=== PATIENT | male | born 2000 | race Hispanic/Latino ===

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

== ENCOUNTER 2024-04-12 12:10 | Emergency (ER) | payer SELFPAY ==
[~2024-04-12] VITALS: Ht 172.7 cm; Wt 95.3 kg
--- NOTE | 2024-04-12 12:20 | ERN ---
ED Note History of Present Illness Stated Complaint: MULT COMP Time Seen by MD: 12:11 Time Seen by Midlevel: 12:19 Dictation: PATIENT IS A 23-YEAR-OLD MALE COMING IN WITH FLU-LIKE SYMPTOMS FOR THREE DAYS TO INCLUDE FRONTAL HEADACHE BODY ACHES STATES HIS KIDNEYS HURT. STATES HE HAS DECREASED APPETITE WITH SORE THROAT. STATES THAT HE THINKS THE ONSET WAS WHEN HE WAS WORKING ON A SHED TO CLEAR IT OUT THREE DAYS AGO AND THERE WAS RAT FECES AND POISON. HAS NOT BEEN TO SEE HIS PRIMARY CARE DOCTOR, STATES HE TOOK ADVIL PRIOR TO ARRIVAL. Allergies: Coded Allergies: No Known Drug Allergies (Unverified Allergy, Unknown, 03/17/20) Past Medical History RN Note Reviewed/Agreed w/PFSH: Yes Review of System Dictation CONSTITUTIONAL: NEGATIVE EXCEPT FOR HPI FEVER CHILLS HEAD/FACE: NEGATIVE EXCEPT FOR HPI EENT: NEGATIVE EXCEPT FOR HPI SORE THROAT WITH PAINFUL SWALLOWING/FRONTAL HEADACHE RESPIRATORY: NEGATIVE EXCEPT FOR HPI GASTROINTESTINAL/ABDOMINAL: NEGATIVE EXCEPT FOR HPI GENITOURINARY: NEGATIVE EXCEPT FOR HPI MUSCULOSKELETAL: NEGATIVE EXCEPT FOR HPI MALAISE INTEGUMENTARY: NEGATIVE EXCEPT FOR HPI NEUROLOGICAL/PSYCH: NEGATIVE EXCEPT FOR HPI HEMATOLOGIC/LYMPHATIC: NEGATIVE EXCEPT FOR HPI ALL SYSTEMS NEGATIVE, EXCEPT NOTED ABOVE. 13 POINT REVIEW OF SYSTEMS ASSESSED AND ALL NEGATIVE EXCEPT FOR ABOVE. Initial Vital Sign VS Vital Signs Date Time Temp Pulse Resp B/P (MAP) Pulse Ox O2 Delivery O2 Flow Rate FiO2 04/12/24 12:24 100.0 120 16 129/79 98 Room Air* 0 21 Physical Exam Dictation VITAL SIGNS REVIEWED GENERAL APPEARANCE: ALERT, ORIENTED X 3, MILD ACUTE DISTRESS, WELL DEVELOPED, NOURISHED. HEAD AND FACE: NON-TRAUMATIC. NO FRONTAL SINUS TENDERNESS EYES: PERRL, PINK CONJUNCTIVAS, EYELID NO TRAUMA, ANTERIOR CHAMBER WITH ARCUS SENILIS. EARS: PINNAS INTACT AND NO SIGNS OF TRAUMA OR ERYTHEMA EAR CANALS CLEAR AND NO DISCHARGE TM NO ERYTHEMA NOSE: NO DISCHARGE, NO BLEEDING. OROPHARYNX: MOUTH NORMAL, TONGUE PINK, PHARYNX CLEAR MODERATE PHARYNGEAL ERYTHEMA, TONSILS NO EXUDATES, NO ABSCESSES NOTED, MUCOUS MEMBRANE MOIST UVULA MIDLINE, VOICE IS CLEAR NECK: SUPPLE, NON-TENDER, NO THYROMEGALY, NO MASSES, NO JVD, NO BRUITS BREAST:DEFERRED CHEST:NO TENDERNESS, NO CREPITUS, NO PARADOXICAL MOVEMENT, NO RETRACTIONS LUNGS:CLEAR, WELL-VENTILATED, SYMMETRIC, NO RALES, NO WHEEZING, NO RHONCHI, NO STRIDOR, GOOD BREATH SOUNDS BILATERALLY HEART: REGULAR RATE, REGULAR RHYTHM, NO MURMUR, NO GALLOPS VASCULAR: NO PERIPHERAL EDEMA, ABDOMEN: SOFT, POSITIVE BOWEL SOUNDS, NONDISTENDED, NO GUARDING, NONTENDER, NO REBOUND, NO MASSES NO HEPATOMEGALY, NO SPLENOMEGALY, NO SANCHEZ'S SIGN, NO HERNIAS. RECTAL: DEFERRED GENITAL: DEFERRED NEUROLOGICAL: NORMAL SPEECH, MOTOR FUNCTION INTACT, SENSORY FUNCTION INTACT MUSCULOSKELETAL: NECK NONTENDER, FULL RANGE OF MOTION, BACK NONTENDER, FULL RANGE OF MOTION, EXTREMITIES: NONTENDER, FULL RANGE OF MOTION SKIN: COLOR PINK, DRY, NO TURGOR, NO RASH, NO LACERATIONS, NO ABRASIONS, NO CONTUSIONS. LYMPHATIC: DEFERRED Results (Laboratory/Radiology) Laboratory/Radiology Laboratory Tests Test 04/12/24 14:55 Influenza Type A Antigen Positive For Type A Influenza Type B Antigen Negative For Type B SARS-CoV-2 Antigen (Rapid) PRESUMPTIVE NEGATIVE Group A Streptococcus Rapid negative (NEGATIVE) Labs Reviewed?: Yes ED Course ED Course Orders Procedure Category Date Status Time Covid19 (Sars Antigen LAB 04/12/24 Complete Rapid) 12:18 Influenza Type A & B, LAB 04/12/24 Complete Rapid 12:18 Rapid (Group A Strep) LAB 04/12/24 Complete 12:18 Dexamethasone 4mg/Ml PHA 04/12/24 Complete 1ml Vial (Dexametha 12:30 Ketorolac 60mg/2ml PHA 04/12/24 Complete (Toradol 60mg/2ml) 12:30 Current Medications Medications (Trade) Dose Ordered Sig/Edward Route PRN Reason Start Time Stop Time Status Last Admin Dose Admin Dexamethasone Sodium Phosphate (dexaMETHasone 4MG/ML 1ML VIAL) 8 mg ONCE ONCE IM 04/12/24 12:30 04/12/24 12:31 DC 04/12/24 14:50 Ketorolac Tromethamine (toRADol 60MG/ 2ML) 60 mg ONCE ONCE IM 04/12/24 12:30 04/12/24 12:31 DC 04/12/24 14:50 Vital Signs Date Time Temp Pulse Resp B/P (MAP) Pulse Ox O2 Delivery O2 Flow Rate FiO2 04/12/24 15:21 99.0 100 16 132/76 100 Room Air* 0 21 04/12/24 12:24 100.0 120 16 129/79 100 Room Air 0 04/12/24 12:24 100.0 120 16 129/79 98 Room Air* 0 21 \[id number] PATIENT WILL BE DISCHARGED HOME WITH INFLUENZA A. SHE WILL BE PRESCRIBED TAMIFLU AND IBUPROFEN TOLD TO SEE HIS PRIMARY CARE DOCTOR. Medical Decision Making MDM MEDICAL DISCHARGE MAKING BASED ON SWABS FOR FLU COVID AND STREP. PATIENT POSITIVE FOR INFLUENZA A DISCHARGED HOME WITH [id number] MG B.I.D. IBUPROFEN FOR FEVER PAIN REHYDRATION INSTRUCTIONS AND TOLD TO SEE HIS PRIMARY CARE DOCTOR DX & DISP Disposition: Discharge Departure Impression: Primary Impression: Influenza A Additional Impression: Fever Condition: Stable Scripts Ibuprofen (Ibuprofen 800 mg Tab) 800 Mg Tab 800 MG PO Q8H PRN for fever or pain, #30 TAB 0 Refills Prov: CHAO KRAFT NP 04/12/24 Oseltamivir Phosphate (Tamiflu) 75 Mg Cap 75 MG PO BID for 5 Days, #10 CAP Prov: CHAO KRAFT LEVEL VIAL INSIDE GRINDER 04/12/24 Additional Instructions: FOLLOW-UP WITH PRIMARY CARE PROVIDER IN 1 TO 2 DAYS. TAKE MEDICATIONS DIRECTED HERE IN THE EMERGENCY ROOM. OKAY TO CONTINUE HOME MEDICATIONS UNLESS OTHERWISE DISCUSSED DURING YOUR VISIT IN THE EMERGENCY ROOM TODAY. RETURN TO YOUR NEAREST EMERGENCY ROOM IF SYMPTOMS WORSEN OR IF THERE IS NO IMPROVEMENT. CALL 911 IF YOU NEED IMMEDIATE ASSISTANCE. TAKE TYLENOL OR MOTRIN [id number] NEEDED AND IF NO CONTRAINDICATIONS ARE PRESENT. INCREASE ORAL HYDRATION. A WOUND CULTURE OR URINE CULTURE WAS ORDERED HERE IN THE EMERGENCY ROOM DEPARTMENT PLEASE FOLLOW-UP WITH PRIMARY CARE PROVIDER AND ADVISE THEM TO GET REPEAT PORTS FROM OUR FACILITY. IF YOU HAD ANY SIOBHAN WRAP/SPLINTS THAT WERE APPLIED HERE, PLEASE DO NOT REMOVE THEM UNTIL YOU SEE YOUR PRIMARY CARE OR SPECIALTY. TAKE IBUPROFEN DIRECTED FOR FEVER PAIN. TAKE TAMIFLU DIRECTED UNTIL GONE, NO WORK OR SCHOOL UNTIL CLEARED BY YOUR PRIMARY CARE DOCTOR. INCREASE FLUIDS. Referrals: LEIGHTON ALVARADO DO (PCP) Time of Disposition: 16:07 I have reviewed the case, and I agree with, Diagnosis and Plan CHAO KRAFT NP Apr 12, 2024 12:20
[2024-04-12] MEDS: ketOROlac 60 MG VIAL (30MG/ML) IM ONE (14:50)
[2024-04-12] MEDS: dexaMETHasone SOD PHOSPHATE 4 MG/ML 1ML VIAL IM ONE (14:50)
[2024-04-12 15:48] LABS: RAPID GROUP A STREP negative (NEGATIVE)
[2024-04-12 16:01] LABS: COVID19 (SARS ANTIGEN RAPID) PRESUMPTIVE NEGATIVE (NEGATIVE); INFLUENZA TYPE B Negative For Type B (NEGATIVE)
[2024-04-12 16:03] LABS: INFLUENZA TYPE A Positive For Type A (NEGATIVE)
[2024-04-12] MEDS ORDERED: OSEL75 PO (16:08)
[2024-04-12] MEDS ORDERED: IBUP-2077 PO (16:08)
[2024-04-12 16:35] VITALS: BP 129/76; PULSE 100; RESP 16; TEMP 98.9; O2SAT 100
== END 2024-04-12 16:41 | disposition home or self-care (01) ==
LOC: EDH 12:10
DX: J10.1 Influenza due to other identified influenza virus with other respiratory manifestations (principal); Z20.822 Contact with and (suspected) exposure to COVID-19; R50.9 Fever, unspecified
CPT/HCPCS: 99284; 87426; 87880; 87804 ×2; 96372 ×2; J1100; J1885